=== PATIENT | female | born 1960 ===

== ENCOUNTER 2020-11-16 15:32 | Emergency (ER) | payer OTHER ==
[~2020-11-16] VITALS: Ht 152.4 cm; Wt 91.6 kg
[2020-11-16] MEDS ORDERED: "\\\"BLOOD PRESSURE MED\\\"" (15:42)
== END 2020-11-16 16:05 | disposition home or self-care (01) ==
LOC: ER 15:32
DX: S70.02XA Contusion of left hip, initial encounter (principal); W01.0XXA Fall on same level from slipping, tripping and stumbling without subsequent striking against object, initial encounter
CPT/HCPCS: 99283